=== PATIENT | male | born 1970 | race Caucasian/White ===

== ENCOUNTER 2018-08-29 03:18 | Outpatient (CLI) | payer SELFPAY ==
[~2018-08-29 03:18] MED LIST: ALBUTEROL INHALER INH; FAMO-128 PO; HYDR-4353 PO; PRAV80TA3 PO
== END 2018-08-29 23:59 | disposition home or self-care (01) ==
LOC: DIABETIC 03:18
PROVIDERS: ATTEND Surgery
DX: E66.01 Morbid (severe) obesity due to excess calories (principal); K21.9 Gastro-esophageal reflux disease without esophagitis; G47.30 Sleep apnea, unspecified; Z88.0 Allergy status to penicillin
CPT/HCPCS: 97802

== ENCOUNTER 2018-09-28 02:18 | Outpatient (CLI) | payer SELFPAY | END 2018-09-28 23:59 | disposition home or self-care (01) | LOC: DIABETIC 02:18 | PROVIDERS: ATTEND Surgery | DX: G47.30 Sleep apnea, unspecified (principal); E66.01 Morbid (severe) obesity due to excess calories | CPT/HCPCS: 97802 ==

== ENCOUNTER 2018-10-24 01:38 | Outpatient (CLI) | payer SELFPAY | END 2018-10-24 23:59 | disposition home or self-care (01) | LOC: DIABETIC 01:38 | PROVIDERS: ATTEND Surgery | DX: E66.01 Morbid (severe) obesity due to excess calories (principal); G47.30 Sleep apnea, unspecified | CPT/HCPCS: 97802 ==

== ENCOUNTER 2018-11-23 09:10 | Day surgery (SDC) | payer MEDICAID ==
[~2018-11-23] VITALS: Ht 172.7 cm; Wt 160.9 kg
[2018-11-23 09:15] VITALS: BP 162/89
[2018-11-23] MEDS ORDERED: CHOL100046 PO (09:29)
[2018-11-23] MEDS ORDERED: FLO0.4C PO (09:29)
[2018-11-23] MEDS ORDERED: ATOR40TA PO (09:31)
[2018-11-23] MEDS ORDERED: SULF1TAB49 PO (09:31)
[2018-11-23] MEDS ORDERED: FLUT100D2 INH (09:33)
[2018-11-23] MEDS ORDERED: MIDAZolam 5mg/5ml vial ONE (09:39)
[2018-11-23] MEDS ORDERED: fentaNYL/PF 50MCG/1 ML 2ML syringe ONE (09:39)
[2018-11-23] MEDS ORDERED: LIDOcaine Viscous 15ml cup ONE (09:39)
[2018-11-23 10:09] VITALS: BP 113/78
[2018-11-23 10:19] VITALS: BP 109/75
[2018-11-23 10:29] VITALS: BP 113/62
[2018-11-23 10:39] VITALS: BP 130/75
== END 2018-11-23 10:50 | disposition home or self-care (01) ==
LOC: GI LAB 09:10
PROVIDERS: ATTEND Internal Medicine Gastroenterology
DX: Z01.818 Encounter for other preprocedural examination (principal); K29.50 Unspecified chronic gastritis without bleeding; K44.9 Diaphragmatic hernia without obstruction or gangrene; K21.0 Gastro-esophageal reflux disease with esophagitis; E66.01 Morbid (severe) obesity due to excess calories
CPT/HCPCS: 43239; J2250; J3010; J7030; 99152; A4620

== ENCOUNTER 2019-06-26 05:56 | Day surgery (SDC) | payer MEDICAID ==
[2019-06-19 10:58] LABS: BASOPHILS % (AUTO) 0.6 % (0-1); EOSINOPHILS # (AUTO) 0.2 X10'3 (0-0.9); EOSINOPHILS % (AUTO) 2.3 % (0-6); LYMPHOCYTES # (AUTO) 1.5 X10'3 (1.1-4.8); LYMPHOCYTES % (AUTO) 18.7 % (21-51); MEAN CORPUSCULAR HEMOGLOBIN 31.7 PG (27.0-31.0); MEAN CORPUSCULAR HGB CONC 34.1 g/dL (33.0-36.5); MEAN CORPUSCULAR VOLUME 92.9 FL (78-98); MEAN PLATELET VOLUME 8.3 FL (7.4-10.4); MONOCYTES # (AUTO) 0.7 X10'3 (0-0.9); MONOCYTES % (AUTO) 8.5 % (2-12); NEUTROPHILS # (AUTO) 5.4 X10'3 (1.8-7.7); NEUTROPHILS % (AUTO) 69.9 % (42-75); PRE OP HEMATOCRIT 45.7 % (42.0-52.0); PRE OP HEMOGLOBIN 15.6 g/dL (14.0-17.9); PRE OP PLATELET COUNT 259 X10'3 (140-440); RED BLOOD COUNT 4.92 X10'6 (4.70-6.10)
[2019-06-19 10:59] LABS: CLARITY,URINE CLEAR (Clear); COLOR,URINE YELLOW (Yellow); GLUCOSE, URINE NEGATIVE (Neg); KETONES,URINE 15 mg/dl (Neg); LEUKOCYTE ESTERASE ,URINE MODERATE (Neg); NITRITES, URINE NEGATIVE (Neg); OCCULT BLOOD,URINE TRACE-INTACT (Neg); PROTEIN,URINE NEGATIVE (Neg); UROBILINOGEN,URINE 0.2 E.U/dL (0.2-1.0)
[2019-06-19 11:02] LABS: UA COLLECTION TYPE NON-SPECIFIED
[2019-06-19 11:08] LABS: MUCUS STRANDS MODERATE /LPF (Neg); SQUAMOUS EPITHELIAL CELL,UR MODERATE /LPF (FEW)
[2019-06-19 11:09] LABS: BACTERIA,URINE 1+ /HPF (Neg); RBC,URINE 0-2 /HPF (0-2); WBC,URINE 20-30 /HPF (0-4)
[2019-06-19 11:14] LABS: ALBUMIN 3.8 G/DL (3.4-5.0); ALKALINE PHOSPHATASE 92 IU/L (46-116); BLOOD UREA NITROGEN 21 MG/DL (7-18); BUN/CREATININE RATIO 21.4 (5.4-32.0); CALCIUM 9.1 MG/DL (8.5-10.1); CHLORIDE 105 MMOL/L (99-107); CREATININE 0.98 MG/DL (0.60-1.10); PRE OP ALT 18 U/L (30-65); PRE OP ANION GAP 9 (8-16); PRE OP AST 15 U/L (10-37); PRE OP BILIRUB, TOTAL 0.6 MG/DL (0.0-1.0); PRE OP GLUCOSE 94 MG/DL (70-104); PRE OP POTASSIUM 3.6 MMOL/L (3.4-5.1); PRE OP SODIUM 144 MMOL/L (135-145); TOTAL CARBON DIOXIDE 29.8 MMOL/L (24-32); TOTAL PROTEIN 7.8 G/DL (6.4-8.2); eGFR 81 ML/MIN
[~2019-06-26] VITALS: Ht 172.7 cm; Wt 117.9 kg
[2019-06-26] VITALS (10 sets, daily range): BP systolic 119–141; BP diastolic 65–91
[~2019-06-26 05:56] MED LIST changes: -ALBUTEROL INHALER INH; -FAMO-128 PO; +OMEP40CA13 PO; -PRAV80TA3 PO; +cefazolin/dext.iso 2gm/100ml 100 ML IV ONE; +famotidine 20mg tablet PO ONE; +ringers solution, lacted 1,000 ML IV SCH
[2019-06-26] MEDS ORDERED: LIDOcaine 1% 30ml preserv. free vial ONE (06:54)
[2019-06-26] MEDS ORDERED: methylene blue (5mg/ml) 50mg/10ml ampul IV ONE (06:54)
[2019-06-26] MEDS ORDERED: BUPIVACAINE liposomal/PF 13.3 MG/ML vial IM ONE (06:54)
[2019-06-26] MEDS ORDERED: BUPIVAcaine/PF 2.5 mg/ml (0.25%) 30ml vial ONE (06:54)
[2019-06-26] MEDS ORDERED: sevoflurane 250ml liquid IH ONE (08:30)
[2019-06-26] MEDS ORDERED: midazolam 2 mg/2 ml injection ONE (08:33)
[2019-06-26] MEDS ORDERED: fentaNYL /PF 50mcg/ml 5ml ampule ONE (08:33)
--- NOTE | 2019-06-26 09:15 | NUR ---
Received from OR via BED, accompanied by Anesthesiologist DR MOON and report given by Anesthesiologist. PT DROWSY, DENIES PAIN, FOAM TAPE COVERING RECTUM CDI. Addendum: 06/26/19 at 0938 by Sheila Gamez RN Amended: Links added.
[2019-06-26] MEDS ORDERED: ringers solution, lacted 1,000 ML IV SCH (09:21)
[2019-06-26] MEDS ORDERED: proCHLORperazine 10 MG/2 ml inj IV PRN (09:25)
[2019-06-26] MEDS ORDERED: ondansetron/PF 4mg/2ml inj IV PRN (09:25)
[2019-06-26] MEDS ORDERED: morphine 4 MG/ML inj SYRINge IV PRN ×2 (09:25)
[2019-06-26] MEDS ORDERED: meperidine/PF 25mg/ml syringe IV PRN ×3 (09:25)
[2019-06-26] MEDS ORDERED: propofol inj 20 ML IV ONE (09:52)
[2019-06-26] MEDS ORDERED: ondansetron/PF 4mg/2ml inj ONE (09:52)
[2019-06-26] MEDS ORDERED: dexamethasone sod phosphate 4mg/ml inj. ONE (09:52)
[2019-06-26] MEDS ORDERED: LIDOcaine 2% (20mg/ml) 5ml vial ONE (09:52)
--- NOTE | 2019-06-26 10:48 | NUR ---
PT DRINKING WATER AND JUICE ATTEMPTING TO VOID, REMAINS STABLE AND COMFORTABLE. Addendum: 06/26/19 at 1049 by Sheila Gamez RN Amended: Links added.
--- NOTE | 2019-06-26 11:05 | NUR ---
D/C INSTRUCTIONS GIVEN AND GONE OVER W/PT AND PTS , BOTH VERBALIZE UNDERSTANDING, PT D/CD TO HOME VIA W/C TO PRIVATE VEHICLE W/O INCIDENT. Addendum: 06/26/19 at 1130 by Sheila Gamez RN Amended: Links added.
== END 2019-06-26 11:05 | disposition home or self-care (01) ==
LOC: PAS 05:56
PROVIDERS: ATTEND Surgery
DX: K60.2 Anal fissure, unspecified (principal); K64.4 Residual hemorrhoidal skin tags; K21.9 Gastro-esophageal reflux disease without esophagitis; M19.90 Unspecified osteoarthritis, unspecified site; Z87.891 Personal history of nicotine dependence; Z98.84 Bariatric surgery status; Z98.890 Other specified postprocedural states; Z79.899 Other long term (current) drug therapy
CPT/HCPCS: 36415; 46257; 80053; 81001; 82948; 85025; 87088; 93005; A6224; A6266; C9290; J1100; J2001; J2250; J2405; J2704; J3010; J3490; Q9968; A4215; A4618; A6449; A7000; J7120